=== PATIENT | female | born 1985 | race Caucasian/White ===

== ENCOUNTER 2016-05-23 05:28 | Observation (INO) | payer OTHER ==
[~2016-05-23] VITALS: Ht 165.1 cm; Wt 85.3 kg
[2016-05-23] MEDS ORDERED: LR 1,000 ML IV.SOLN IV ONE (14:00)
[2016-05-23] MEDS ORDERED: ceFAZolin SODIUM 1 GM VIAL ONE ×2 (14:00→20:56)
[2016-05-23] MEDS ORDERED: BUPIVACAINE /PF 0.25% 30 ML VIAL INJ ONE (14:00)
[2016-05-23] MEDS ORDERED: HYDROcodone/ACETAMIN 5-325 MG TAB (NORCO/ VICODIN) PO PRN (18:15)
[2016-05-23] MEDS ORDERED: OXYCODONE/ACETAMINOPHEN 5-325 TABLET PO PRN (18:15)
[2016-05-23] MEDS ORDERED: TERBUTALINE SULFATE 1 MG/ML VIAL SUBCUT ONE (18:15)
[2016-05-23] MEDS ORDERED: ONDANSETRON HCL 4 MG/2 ML VIAL IVP PRN ×2 (18:15→18:30)
[2016-05-23] MEDS ORDERED: LR 1,000 ML IV SCH ×2 (18:20→23:54)
[2016-05-23] MEDS ORDERED: MEPERIDINE HCL/PF 25 MG/ML DISP.SYRIN IVP PRN ×2 (18:30)
[2016-05-23 18:50] VITALS: BP_SYST 101
[2016-05-23] MEDS ORDERED: MORPHINE SULFATE 10 MG/ML VIAL IVP PRN ×2 (20:15→20:30)
[2016-05-23] MEDS ORDERED: MORPHINE SULFATE 10 MG/ML VIAL IM PRN (20:15)
[2016-05-23] MEDS ORDERED: PROMETHAZINE HCL 25 MG/ML AMP IVP PRN (20:15)
[2016-05-23] MEDS ORDERED: MORPHINE SULFATE 10 MG/ML VIAL IV PRN (20:30)
[2016-05-23] MEDS: ceFAZolin SODIUM 1 GM in D5W 50 ML IV SCH (22:08)
[2016-05-23] MEDS ORDERED: OXYTOCIN/NORMAL SALINE 1,000 ML IV SCH (23:54)
[2016-05-24] MEDS ORDERED: NALBUPHINE HCL 10 MG/ML AMP IVP PRN
[2016-05-24] MEDS ORDERED: TERBUTALINE SULFATE 1 MG/ML VIAL SUBCUT ONE
[2016-05-24] MEDS ORDERED: DINOPROSTONE 10 MG SUPP VG ONE
[2016-05-24] MEDS ORDERED: ceFAZolin SODIUM 1 GM VIAL ONE (05:07)
[2016-05-24] MEDS: ceFAZolin SODIUM 1 GM in D5W 50 ML IV SCH ×2 (05:30→13:31)
== END 2016-05-24 14:10 | disposition home or self-care (01) ==
LOC: SPU 05:28 → UNDOADMIN 17:00 → UNDODISIN 05-24 14:10
PROVIDERS: ADMIT Specialist; ATTEND Specialist
DX: O34.32 Maternal care for cervical incompetence, second trimester (principal); O30.002 Twin pregnancy, unspecified number of placenta and unspecified number of amniotic sacs, second trimester; Z3A.20 20 weeks gestation of pregnancy
CPT/HCPCS: 59320; 87070 ×2; 96365; 96372; 96375 ×2; 96376; G0378 ×2; J0690 ×2; J2270; J2550; J3105; J3490; J7060; J7120; 85025; 87075-TC

== ENCOUNTER 2016-07-11 18:00 | Inpatient (IN) | payer OTHER ==
[~2016-07-11] VITALS: Ht 165.1 cm; Wt 89.8 kg
[2016-07-11] MEDS ORDERED: TERBUTALINE SULFATE 1 MG/ML VIAL SUBCUT PRN (19:45)
[2016-07-11] MEDS: LR 1,000 ML IV SCH (19:57)
[2016-07-11 20:21] LABS: BASOPHILS % (AUTO) 0.3 % (0.0-2.0); EOSINOPHILS # (AUTO) 0.5 K/uL (0.0-0.4); EOSINOPHILS % (AUTO) 3.3 % (0.0-4.0); HEMATOCRIT 34.2 % (36-48); HEMOGLOBIN 11.7 g/dL (12.0-16.0); LYMPHOCYTES # (AUTO) 2.1 K/uL (1.0-5.5); LYMPHOCYTES % (AUTO) 13.3 % (20.5-51.5); MEAN CORPUSCULAR HEMOGLOBIN 31 pg (27-31); MEAN CORPUSCULAR HGB CONC 34 % (32-36); MEAN CORPUSCULAR VOLUME 89 fL (79.0-98.0); MONOCYTES # (AUTO) 0.8 K/uL (0.0-1.0); NEUTROPHILS # (AUTO) 12.4 K/uL (1.8-7.7); NEUTROPHILS % (AUTO) 78.1 % (40.0-70.0); PLATELET COUNT (AUTO) 284 K/uL (130-430); RED BLOOD CELL COUNT(AUTO) 3.82 MIL/uL (4.2-6.2); RED CELL DISTRIBUTION WIDTH 13.3 % (9.0-15.0); WHITE BLOOD COUNT (AUTO) 15.8 K/uL (4.8-10.8)
[2016-07-11] MEDS ORDERED: LR 1,000 ML IV ONE (20:22)
[2016-07-11 20:33] LABS: BILIRUBIN,URINE NEGATIVE (NEGATIVE); BLOOD, URINE 1+ (NEGATIVE); COLOR,URINE YELLOW (YELLOW); GLUCOSE,URINE NEGATIVE (NEGATIVE); KETONES,URINE 1+ (NEGATIVE); LEUKOCYTE ESTERASE ,URINE 2+ (NEGATIVE); NITRITE, URINE NEGATIVE (NEGATIVE); PH,URINE 6.5 (5.0-8.0); PROTEIN URINE NEGATIVE (NEGATIVE); UROBILINOGEN,URINE 0.2 (0.2-1.0)
[2016-07-11 20:38] LABS: CLARITY/URINE SLIGHTLY HAZY (CLEAR)
[2016-07-11 20:54] LABS: BACTERIA,URINE FEW /HPF (None Seen); MUCUS,URINE None Seen /LPF (None Seen)
[2016-07-11] MEDS: ZOLPIDEM TARTRATE 5 MG TABLET PO SCH (23:19)
[2016-07-12] MEDS ORDERED: LR 1,000 ML IV ONE (10:13)
[2016-07-12] MEDS ORDERED: NALBUPHINE HCL 10 MG/ML AMP IVP PRN (10:15)
[2016-07-12] MEDS ORDERED: ePHEDrine sulfate 50 MG/ML VIAL IVP PRN (10:15)
[2016-07-12] MEDS ORDERED: KETOROLAC TROMETHAMINE 30 MG VIAL IM PRN (10:15)
[2016-07-12] MEDS ORDERED: DIPHENHYDRAMINE INJ 50 MG/ML VIAL IVP PRN (10:15)
[2016-07-12] MEDS ORDERED: fentaNYL CITRATE/PF 100 MCG/2 ML AMP IVP PRN (10:15)
[2016-07-12] MEDS ORDERED: NALOXONE HCL 0.4 MG/ML AMP (NARCAN) IVP PRN (10:15)
[2016-07-12] MEDS ORDERED: ONDANSETRON HCL 4 MG/2 ML VIAL IVP PRN ×3 (10:15→13:45)
[2016-07-12] MEDS ORDERED: MORPHINE SULFATE 10 MG/ML VIAL IVP ONE ×2 (13:45→18:15)
[2016-07-12] MEDS ORDERED: LR 1,000 ML IV.SOLN IV ONE (14:00)
[2016-07-12] MEDS ORDERED: PROPOFOL 200MG/ 20ML VIAL (DIPRIVAN) IV ONE (14:00)
[2016-07-12] MEDS ORDERED: NS IRRIG SOLN 1000 ML IR ONE (14:00)
[2016-07-12] MEDS ORDERED: CEFAZOLIN 1 GM IVPB PREMIX 50 ML IV ONE (14:00)
[2016-07-12] MEDS: ceFAZolin SODIUM 1 GM in D5W 50 ML IV SCH ×2 (14:00→21:52)
[2016-07-12] MEDS ORDERED: DIPHENHYDRAMINE INJ 50 MG/ML VIAL ONE (14:00)
[2016-07-12 20:00] VITALS: BP_SYST 92
[2016-07-12] MEDS: LR 1,000 ML IV SCH (21:51)
[2016-07-13] MEDS: ZOLPIDEM TARTRATE 5 MG TABLET PO SCH (02:29)
[2016-07-13] MEDS: ceFAZolin SODIUM 1 GM in D5W 50 ML IV SCH (05:44)
[2016-07-13] MEDS: LR 1,000 ML IV SCH (06:46)
== END 2016-07-13 12:21 | disposition home or self-care (01) | DRG 781 ==
LOC: SPU 18:00 → OBSVTOIN 18:50
PROVIDERS: ADMIT Specialist; ATTEND Specialist
PROC: 0UVC7ZZ Restriction of Cervix, Via Natural or Artificial Opening (ICD-10-PCS; principal; 2016-07-12 08:30)
DX: O30.002 Twin pregnancy, unspecified number of placenta and unspecified number of amniotic sacs, second trimester (principal); O99.512 Diseases of the respiratory system complicating pregnancy, second trimester; O34.32 Maternal care for cervical incompetence, second trimester; J45.50 Severe persistent asthma, uncomplicated; Z3A.25 25 weeks gestation of pregnancy; Z91.018 Allergy to other foods
CPT/HCPCS: 36415; 81000-TC; 85025; 86592; 86886; 86900; 86901; 87070; 87070-TC; 87086; 94010; G0378; J0690; J1200; J2270; J2405; J2704; J3105; J7060; J7120

== ENCOUNTER 2018-07-14 18:22 | Emergency (ER) | payer OTHER ==
[~2018-07-14] VITALS: Ht 165.1 cm; Wt 90.7 kg
[2018-07-14 18:28] VITALS: BP_SYST 157
[2018-07-14] MEDS ORDERED: NACL 0.9% 1,000 ML IV ONE (20:45)
[2018-07-14 21:03] LABS: BASOPHILS # (AUTO) 0.1 K/uL (0.0-0.2); BASOPHILS % (AUTO) 0.6 % (0.0-2.0); EOSINOPHILS # (AUTO) 0.6 K/uL (0.0-0.4); EOSINOPHILS % (AUTO) 6.4 % (0.0-4.0); HEMATOCRIT 40.9 % (36-48); HEMOGLOBIN 13.4 g/dL (12.0-16.0); LYMPHOCYTES # (AUTO) 2.9 K/uL (1.0-5.5); LYMPHOCYTES % (AUTO) 29.6 % (20.5-51.5); MEAN CORPUSCULAR HEMOGLOBIN 29 pg (27-31); MEAN CORPUSCULAR HGB CONC 33 % (32-36); MEAN CORPUSCULAR VOLUME 88 fL (79.0-98.0); MONOCYTES # (AUTO) 0.7 K/uL (0.0-1.0); MONOCYTES % (AUTO) 6.6 % (1.7-9.3); NEUTROPHILS # (AUTO) 5.6 K/uL (1.8-7.7); NEUTROPHILS % (AUTO) 56.8 % (40.0-70.0); PLATELET COUNT (AUTO) 261 K/uL (130-430); RED BLOOD CELL COUNT(AUTO) 4.63 MIL/uL (4.2-6.2); RED CELL DISTRIBUTION WIDTH 13.2 % (9.0-15.0); WHITE BLOOD COUNT (AUTO) 9.9 K/uL (4.8-10.8)
[2018-07-14 23:05] VITALS: BP_SYST 114
== END 2018-07-14 23:05 | disposition home or self-care (01) ==
LOC: SED 18:22
DX: N93.9 Abnormal uterine and vaginal bleeding, unspecified (principal); R10.2 Pelvic and perineal pain; J45.909 Unspecified asthma, uncomplicated; R03.0 Elevated blood-pressure reading, without diagnosis of hypertension; Z91.018 Allergy to other foods
CPT/HCPCS: 36415; 76830; 76857; 81025; 84702; 85025; 86900; 86901; 99284; J7030